=== PATIENT | male | born 1995 | race Two or more races ===

== ENCOUNTER 2022-03-10 05:57 | Emergency (ER) | payer OTHER ==
[~2022-03-10] VITALS: Ht 180.3 cm; Wt 117.9 kg
== END 2022-03-10 11:02 | disposition home or self-care (01) ==
LOC: ER 05:57
DX: J10.1 Influenza due to other identified influenza virus with other respiratory manifestations (principal); R50.9 Fever, unspecified; R05.9 Cough, unspecified; Z20.822 Contact with and (suspected) exposure to COVID-19; Z88.6 Allergy status to analgesic agent